=== PATIENT | male | born 1980 | race American Indian/Alaskan Native ===

== ENCOUNTER 2017-05-25 16:29 | Emergency (ER) | payer SELFPAY ==
[2017-05-25 17:34] VITALS: BP 136/102
--- NOTE | 2017-05-25 18:15 | Emergency Department Report ---
Chief Complaint: Abdominal Pain Stated Complaint: ABD PAIN/DIARRHEA Time Seen by Provider: 05/25/17 18:12 - HPI History of Present Illness: Patient states he has had a MARION since this morning, along with lower abdominal pain, non-bloody diarrhea and subjective fevers; denies N/V and urinary sxs - ROS Review of Systems: Negative except those stated in HPI - Exam Vital Signs: Vital Signs 05/25/17 17:31 Temperature 98.2 F Pulse Rate 78 Respiratory 18 Rate Blood Pressure 136/102 O2 Sat by Pulse 97 Oximetry Physical Exam: NAD Abdomen - mild TTP over suprapubic area MSE screening note: Focused history and physical exam performed. Due to findings the following was ordered: labs, flu swab Patient to be seen by provider in Main ED ED Disposition for MSE Condition: Stable
== END 2017-05-25 20:45 | disposition left against medical advice (07) ==
LOC: ED 16:29
DX: R10.9 Unspecified abdominal pain (principal); R19.7 Diarrhea, unspecified; Z53.21 Procedure and treatment not carried out due to patient leaving prior to being seen by health care provider
CPT/HCPCS: 87400